=== PATIENT | female | born 1960 | race Caucasian/White ===

== ENCOUNTER 2024-08-24 15:34 | Outpatient (CLI) | payer BC, SELFPAY ==
--- NOTE | ~2024-08-24 | US_ITS ---
EXAMINATION: US thyroid DATE: 08/24/2024 15:50 INDICATION: Nontoxic single thyroid nodule TECHNIQUE: Multiple ultrasound images of the thyroid were obtained. COMPARISON: None. FINDINGS: The right thyroid lobe measures 4.1 x 2.6 x 2.3 cm. The left thyroid lobe measures 3.6 x 2.0 x 1.9 c m. There is a 3.6 cm predominant solid wider than tall very hypoechoic nodule in the right thyroid l obe with smooth margins and punctate internal echogenic foci (TI-RADS 5, highly suspicious , FNA if > =1.0 cm, annual followup is >0.5 cm). 9 mm wider than tall mixed solid and cystic nodule with hypoech oic solid component, smooth margins and without echogenic foci in the left thyroid lobe (TI-RADS 3, m ildly suspicious , FNA if >=2.5 cm, annual followup is >=1.5 cm). Finally there is a 7 mm solid hypoe choic nodule with smooth to ill-defined margins and without echogenic foci in the left thyroid lobe ( TI-RADS 4, moderately suspicious , FNA if >=1.5 cm, annual followup is >=1 cm). IMPRESSION: 1. Multinodular goiter. Recommend ultrasound-guided biopsy of the 3.6 cm TI RADS 5 right thyroid nodu le. Reviewed, dictated and finalized at location A. IMPRESSION: 1. Multinodular goiter. Recommend ultrasound-guided biopsy of the 3.6 cm TI RAD S 5 right thyroid nodule.
== END 2024-08-24 15:35 | disposition home or self-care (01) ==
LOC: MICIMG 15:34
PROVIDERS: PCP Family Medicine; Visit Provider Internal Medicine Endocrinology, Diabetes & Metabolism
DX: E04.2 Nontoxic multinodular goiter (principal)
CPT/HCPCS: 76536